=== PATIENT | male | born 1990 | race Caucasian/White ===

== ENCOUNTER 2018-10-11 00:48 | Emergency (ER) | payer BC ==
[~2018-10-11] VITALS: Ht 172.7 cm; Wt 109.1 kg
[2018-10-11] MEDS ORDERED: ADVAIR DISKUS1 DS1 IH (01:02)
[2018-10-11] MEDS ORDERED: PROAIR HFA0.09 MG/AC IH (01:03)
[2018-10-11] MEDS ORDERED: SINGULAIR PO (01:03)
[2018-10-11] MEDS ORDERED: PREDNISONE20 M1 PO (01:41)
[2018-10-11] MEDS ORDERED: EASY NEB COMPR1 EACH MC (01:50)
[2018-10-11] MEDS ORDERED: IPRATROPIUM BROM3 M1 IH (01:50)
[2018-10-11 02:08] VITALS: BP 148/72
== END 2018-10-11 02:07 | disposition home or self-care (01) ==
LOC: ED 00:48
DX: J45.901 Unspecified asthma with (acute) exacerbation (principal); Z79.51 Long term (current) use of inhaled steroids
CPT/HCPCS: J7512

== ENCOUNTER 2019-05-12 15:32 | Emergency (ER) | payer BC ==
[~2019-05-12] VITALS: Ht 170.2 cm; Wt 112.9 kg
[~2019-05-12 15:32] MED LIST: ADVAIR DISKUS1 DS1 IH; EASY NEB COMPR1 EACH MC; IPRATROPIUM BROM3 M1 IH; PREDNISONE20 M1 PO; PROAIR HFA0.09 MG/AC IH; SINGULAIR PO
[2019-05-12] MEDS ORDERED: ADVAIR DISKUS1 DS2 IH (15:41)
[2019-05-12] MEDS ORDERED: IPRATROPIUM BROM3 M1 IH (15:42)
[2019-05-12] MEDS ORDERED: PREDNISONE10 MG PO (18:21)
[2019-05-12 18:34] VITALS: BP 125/77
== END 2019-05-12 18:40 | disposition home or self-care (01) ==
LOC: ED 15:32
DX: J45.909 Unspecified asthma, uncomplicated (principal); K21.9 Gastro-esophageal reflux disease without esophagitis; Z91.14 Patient's other noncompliance with medication regimen
CPT/HCPCS: J2930; J7512